=== PATIENT | female | born 1970 | race Caucasian/White ===

== ENCOUNTER 2019-07-27 09:00 | Outpatient (RCR) | payer MEDICARE, MEDICAID, SELFPAY | END 2019-07-27 23:59 | disposition home or self-care (01) | LOC: ANHAUDIO 09:00 | DX: Z46.1 Encounter for fitting and adjustment of hearing aid (principal) | CPT/HCPCS: 99199 ==

== ENCOUNTER 2019-12-14 11:22 | Outpatient (RCR) | payer MEDICARE, MEDICAID, SELFPAY | END 2019-12-14 23:59 | disposition home or self-care (01) | LOC: ANHAUDIO 11:22 | DX: Z46.1 Encounter for fitting and adjustment of hearing aid (principal) | CPT/HCPCS: 99199 ==

== ENCOUNTER 2020-03-16 09:00 | Outpatient (RCR) | payer MEDICAID, SELFPAY | END 2020-06-14 23:59 | disposition home or self-care (01) | LOC: ANHBWCAUD 09:00 | DX: Z46.1 Encounter for fitting and adjustment of hearing aid (principal) | CPT/HCPCS: 99199 ==

== ENCOUNTER 2020-06-19 09:04 | Outpatient (RCR) | payer MEDICAID, SELFPAY | END 2020-09-17 23:59 | disposition home or self-care (01) | LOC: ANHBWCAUD 09:04 | PROVIDERS: PCP Family Medicine; Visit Provider Family Medicine | DX: Z46.1 Encounter for fitting and adjustment of hearing aid (principal) | CPT/HCPCS: 99199 ==

== ENCOUNTER 2021-05-24 07:59 | Outpatient (RCR) | payer OTHER, SELFPAY | END 2021-08-22 23:59 | disposition home or self-care (01) | LOC: ANHBWCAUD 07:59 | PROVIDERS: PCP Family Medicine; Visit Provider Family Medicine | DX: Z46.1 Encounter for fitting and adjustment of hearing aid (principal) | CPT/HCPCS: 99199; V5014 ==

== ENCOUNTER 2023-07-08 10:07 | Outpatient (RCR) | payer OTHER, SELFPAY | END 2023-10-06 23:59 | disposition home or self-care (01) | LOC: ANHBWCAUD 10:07 | PROVIDERS: PCP Family Medicine | DX: Z46.1 Encounter for fitting and adjustment of hearing aid (principal) | CPT/HCPCS: 92592 ==